=== PATIENT | female | born 1995 | race Caucasian/White ===

== ENCOUNTER 2017-01-04 23:58 | Emergency (ER) | payer OTHER ==
[~2017-01-04] VITALS: Ht 167.6 cm; Wt 54.4 kg
[~2017-01-04 23:58] MED LIST: IBUPROFEN 600600 M1 PO
[2017-01-05] MEDS ORDERED: HALDOL5 MG/1 ML PO (00:06)
[2017-01-05] MEDS ORDERED: DEPAKOTE500 MG PO (00:06)
[2017-01-05] MEDS ORDERED: IBUPROFEN 600600 M1 PO (00:42)
[2017-01-05] MEDS ORDERED: NORCO 5-325 TA1 EACH PO (00:42)
[2017-01-05] MEDS ORDERED: CYCLOBENZAPRINE10 MG PO (00:42)
[2017-01-05 00:44] VITALS: BP 123/84
== END 2017-01-05 00:45 | disposition home or self-care (01) ==
LOC: ER 23:58
DX: S76.012A Strain of muscle, fascia and tendon of left hip, initial encounter (principal); M54.42 Lumbago with sciatica, left side; F17.210 Nicotine dependence, cigarettes, uncomplicated; Z88.8 Allergy status to other drugs, medicaments and biological substances; X58.XXXA Exposure to other specified factors, initial encounter; Y93.89 Activity, other specified; Y92.89 Other specified places as the place of occurrence of the external cause; Y99.8 Other external cause status